=== PATIENT | female | born 1990 | race American Indian/Alaskan Native ===

== ENCOUNTER 2016-07-18 16:23 | Emergency (ER) | payer BC, OTHER ==
[2016-07-18 16:24] VITALS: BMI 20.1
[2016-07-18 16:48] VITALS: BP 137/86; PULSE 83; RESP 16; TEMP 98.8; O2SAT 100
--- NOTE | 2016-07-18 17:18 | ED PDOC ---
HPI: Female Pain Time Seen by Provider: 07/18/16 16:50 Chief Complaint (Nursing): Female Genitourinary History Per: Patient (Vaginal spotting x 2 days. Denies lower abd pain.) Onset/Duration Of Symptoms: Days (2) Current Symptoms Are (Timing): Intermittent Episodes Severity: Mild Pain Scale Rating Of: 0 Associated Symptoms: denies: Nausea, Vomiting Abnormal Vaginal Bleeding: Yes Past Medical History Vital Signs: Last Vital Signs Temp 98.8 F 07/18/16 16:45 Pulse 83 07/18/16 16:45 Resp 16 07/18/16 16:45 BP 137/86 07/18/16 16:45 Pulse Ox 100 07/18/16 16:45 - Medical History PMH: Denies: HIV, Chronic Kidney Disease - Family History Family History: States: Unknown Family Hx - Home Medications Home Medications: Ambulatory Orders Medication Instructions Recorded Vit37/Iron/Folic Acid 1 each PO DAILY 09/19/15 [Prenata Chewable Tablet] Doxylamine/Pyridoxine HCl (B6) 1 each PO DAILY PRN #120 tablet. 10/08/15 [Juan Frias 10-10 mg Tablet] Ondansetron ODT [Zofran ODT] 1 odt PO BID PRN #30 odt 10/08/15 - Allergies Allergies/Adverse Reactions: Allergies Allergy/AdvReac Type Severity Reaction Status Date / Time No Known Allergies Allergy Verified 07/18/16 16:45 Review of Systems Constitutional: Negative for: Fever Gastrointestinal: Negative for: Abdominal Pain Genitourinary Female: Positive for: Vaginal Bleeding. Negative for: Dysuria, Frequency Physical Exam - Physical Exam Appears: Positive for: Non-toxic, No Acute Distress Skin: Positive for: Normal Color, Warm, DRY Gastrointestinal/Abdominal: Positive for: Bowel Sounds, Soft. Negative for: Tenderness Pelvic Exam: Positive for: External Exam Normal, No Masses, Blood (scant old blood in vault). Negative for: Tender Adnexa - Laboratory Results Result Diagrams: 07/18/16 17:44 - ECG O2 Sat by Pulse Oximetry: 100 Medical Decision Making Medical Decision Making: Discussed with Dr. Bauman. Recommends Cytotec intravagianlly. Pt sates she would prefer to wait and see if she miscarries on her own. Disposition - Clinical Impression Clinical Impression: Threatened - Patient ED Disposition Is Patient to be Admitted: No - Disposition Referrals: Erin Fabian MD [Staff Provider] - Disposition: Routine/Home Disposition Time: 20:16 Condition: FAIR Instructions: Threatened Miscarriage (ED)
--- NOTE | 2016-07-18 18:24 | US ---
HISTORY: r/o ectopic COMPARISON: None available. TECHNIQUE: Transvaginal ultrasound examination of the pelvis. FINDINGS: UTERUS: Measures 7.5 x 4.2 x 6.4 cm. Normal in size and appearance. No fibroid or other mass lesion seen. ENDOMETRIUM: There is a cystic structures seen in the endometrium measures 7.8 x 3.7 x 10.3 millimeter may represent and barely gestational sac. No evidence of yolk sac or pole . CERVIX: No cervical abnormality identified. RIGHT OVARY: Measures 1.9 x 0.9 x 1.8 cm. No solid mass. Normal flow. LEFT OVARY: Measures 2.4 x 1.2 x 1.7 cm. No solid mass. Normal flow. FREE FLUID: No significant free fluid noted. OTHER FINDINGS: None. IMPRESSION: Small cystic structures seen in the endometrium may represent an early gestational sac. No evidence of pole or yolk sac. Correlation with the beta HCG level and if indicated close follow-up reassessment is recommended.
[2016-07-18 18:53] LABS: BASO % 0.4 % (0.0-2.0); EOS # 0.1 K/uL (0.0-0.7); EOS % 0.7 % (0.0-4.0); HEMATOCRIT 37.6 % (34.0-47.0); LYMPH # 3.7 K/uL (1.0-4.3); LYMPH % 46.7 % (20.0-40.0); MEAN CELL VOLUME 91.8 fl (81.0-99.0); MEAN CORPUSCULAR HEMOGLOBIN 29.9 pg (27.0-31.0); MEAN CORPUSCULAR HGB CONC 32.5 g/dL (33.0-37.0); MEAN PLATELET VOLUME 8.3 fl (7.2-11.7); MONO # 0.7 K/uL (0.0-0.8); MONO % 9.1 % (0.0-10.0); NEUT # 3.4 K/uL (1.8-7.0); NEUT % 43.1 % (50.0-75.0); NRBC % 0.1 % (0.0-0.0); RED CELL DISTRIBUTION WIDTH 11.7 % (11.5-14.5); WHITE BLOOD COUNT 7.8 K/uL (4.8-10.8)
== END 2016-07-18 20:30 | disposition home or self-care (01) ==
LOC: H.ER 16:23
DX: O20.0 Threatened abortion (principal)

== ENCOUNTER 2016-11-26 15:43 | Emergency (ER) | payer OTHER ==
[2016-11-26 15:43] VITALS: BMI 20.1
--- NOTE | 2016-11-26 16:49 | ED PDOC ---
HPI: Female Pain Time Seen by Provider: 11/26/16 16:13 Chief Complaint (Nursing): Female Genitourinary Chief Complaint (Provider): vaginal d/c History Per: Patient History/Exam Limitations: no limitations Additional Complaint(s): 26yo F in ED for eval of vaginal d/c noted 4d ago-white milky, with itching after unprotected intercourse with a new partner. denies hcx of STI. denies lesions around vulva, denies suprapubic pain denies back pain denies fever or chills nausea or vomiting. denies vaginal bleeding. states she tried store brand vaginal antifungal and Monitostat antifungal both not effective. Past Medical History Reviewed: Historical Data, Nursing Documentation, Vital Signs Vital Signs: Last Vital Signs Temp 98.4 F 11/26/16 15:50 Pulse 84 11/26/16 15:50 Resp 16 11/26/16 15:50 BP 126/67 11/26/16 15:50 Pulse Ox 99 11/26/16 15:50 - Medical History PMH: Denies: HIV, Chronic Kidney Disease - Family History Family History: States: Unknown Family Hx - Home Medications Home Medications: Ambulatory Orders Medication Instructions Recorded Vit37/Iron/Folic Acid 1 each PO DAILY 09/19/15 [Prenata Chewable Tablet] Doxylamine/Pyridoxine HCl (B6) 1 each PO DAILY PRN #120 tablet. 10/08/15 [Juan Frias 10-10 mg Tablet] Ondansetron ODT [Zofran ODT] 1 odt PO BID PRN #30 odt 10/08/15 Fluconazole [Diflucan] 150 mg PO ONCE #1 tab 11/26/16 - Allergies Allergies/Adverse Reactions: Allergies Allergy/AdvReac Type Severity Reaction Status Date / Time No Known Allergies Allergy Verified 11/26/16 15:49 Review of Systems ROS Statement: Except As Marked, All Systems Reviewed And Found Negative Gastrointestinal: Negative for: Abdominal Pain Genitourinary Female: Positive for: Vaginal Discharge. Negative for: Dysuria, Frequency, Incontinence, Vaginal Bleeding, Pelvic Pain Physical Exam - Reviewed Nursing Documentation Reviewed: Yes Vital Signs Reviewed: Yes - Physical Exam Appears: Positive for: Well, Non-toxic, No Acute Distress Head Exam: Positive for: ATRAUMATIC, NORMAL INSPECTION, NORMOCEPHALIC Skin: Positive for: Normal Color, Warm, DRY Cardiovascular/Chest: Positive for: Regular Rate, Rhythm Respiratory: Positive for: CNT, Normal Breath Sounds Gastrointestinal/Abdominal: Positive for: Normal Exam, Bowel Sounds, Soft. Negative for: Tenderness Pelvic Exam: Positive for: External Exam Normal, Bimanual Exam Normal, No Cerv. Motion Tender, No Masses, Discharge (white curd like d/c adhering to the vaignal wall ). Negative for: Active Bleeding, Blood, Cervicitis, Lesions, Mass , Tender W/Cervical Motion, Tender Adnexa, Tender Uterus, Ulcers Neurologic/Psych: Positive for: Alert, Oriented - ECG O2 Sat by Pulse Oximetry: 99 - Progress ED Course And Treament: Orders Category Date Time Status ED Urine (POC) Stat ED Care 11/26/16 16:05 Ordered UDip [ED Urine dipstick (POC)] Stat ED Care 11/26/16 16:05 Ordered CHLAMYDIA/GC RNA,TMA Stat Lab 11/26/16 16:45 Uncollected Fluconazole [Diflucan] Med 11/26/16 16:45 Once 150 mg PO ONCE ONE GENITAL CULTURE Stat Micro 11/26/16 16:45 Uncollected Medical Decision Making Medical Decision Making: pt given option to have prophylactic tx for GC, but decline at this time. advised strongly to wait for results of testing to have intercourse. pt understands and agrees. pt given difuclan in ED and 1 tab for home to take in 3d. pt most likely with ricky infection. Disposition - Clinical Impression Clinical Impression: Vagina, candidiasis, STD (sexually transmitted disease) - Patient ED Disposition Is Patient to be Admitted: No Counseled Patient/Family Regarding: Studies Performed, Diagnosis, Need For Followup, Rx Given - Disposition Referrals: [facility] [Outside] [facility] [Outside] Disposition: Routine/Home Disposition Time: 16:54 Condition: STABLE Additional Instructions: please call the Emergency Department [phone] in 5-6 days for your results. please take your Rx in 3 days. Prescriptions: Fluconazole [Diflucan] 150 mg PO ONCE #1 tab Instructions: Vulvovaginal Candidiasis (ED)
[2016-11-26] MEDS: Fluconazole 150 MG TAB PO ONE (17:25)
[2016-11-26 17:41] VITALS: BP 127/78; PULSE 78; RESP 19; TEMP 97; O2SAT 98
== END 2016-11-26 17:41 | disposition home or self-care (01) ==
LOC: H.ER 15:43
DX: B37.3 Candidiasis of vulva and vagina (principal); A54.9 Gonococcal infection, unspecified

== ENCOUNTER 2016-11-29 17:32 | Emergency (ER) | payer OTHER ==
[2016-11-29 17:32] VITALS: BMI 20.1
[2016-11-29 17:51] VITALS: BP 126/89; PULSE 77; RESP 18; TEMP 99; O2SAT 100
[2016-11-29] MEDS ORDERED: cefTRIAXone (Rocephin) 250 mg Inj IM ONE (18:12)
--- NOTE | 2016-11-29 18:42 | ED PDOC ---
HPI: Female Pain Time Seen by Provider: 11/29/16 17:38 Chief Complaint (Nursing): Female Genitourinary Chief Complaint (Provider): Abnormal labs History Per: Patient History/Exam Limitations: no limitations Additional Complaint(s): Patient is a 26 y/o female with no significant past medical history presenting to the emergency department after she recieved a callback stating her Gonorrhea exam was +. Pt diagnosed with yeast infection and started on Diflucan while in ED. Notes that symptoms are still persisting. Denies any acute complaints at this time. PCP: none provided. Past Medical History Reviewed: Historical Data, Nursing Documentation, Vital Signs Vital Signs: Last Vital Signs Temp 99 F 11/29/16 17:49 Pulse 77 11/29/16 17:49 Resp 18 11/29/16 17:49 BP 126/89 11/29/16 17:49 Pulse Ox 100 11/29/16 17:49 - Medical History PMH: No Chronic Diseases Denies: HIV, Chronic Kidney Disease - Family History Family History: States: Unknown Family Hx - Home Medications Home Medications: Ambulatory Orders Medication Instructions Recorded Vit37/Iron/Folic Acid 1 each PO DAILY 09/19/15 [Prenata Chewable Tablet] Doxylamine/Pyridoxine HCl (B6) 1 each PO DAILY PRN #120 tablet. 10/08/15 [Juan Frias 10-10 mg Tablet] Ondansetron ODT [Zofran ODT] 1 odt PO BID PRN #30 odt 10/08/15 Fluconazole [Diflucan] 150 mg PO ONCE #1 tab 11/26/16 - Allergies Allergies/Adverse Reactions: Allergies Allergy/AdvReac Type Severity Reaction Status Date / Time No Known Allergies Allergy Verified 11/26/16 15:49 Review of Systems ROS Statement: Except As Marked, All Systems Reviewed And Found Negative Genitourinary Female: Positive for: Other (vaginal irritation) Physical Exam - Reviewed Nursing Documentation Reviewed: Yes Vital Signs Reviewed: Yes - Physical Exam Appears: Positive for: Well, Non-toxic, No Acute Distress Head Exam: Positive for: ATRAUMATIC, NORMAL INSPECTION, NORMOCEPHALIC Skin: Positive for: Normal Color, Warm, Dry Eye Exam: Positive for: Normal appearance Neck: Positive for: Normal Cardiovascular/Chest: Positive for: Regular Rate, Rhythm Respiratory: Negative for: Accessory Muscle Use, Respiratory Distress Pelvic Exam: Positive for: Other (deferred) Extremity: Positive for: Normal ROM Neurologic/Psych: Positive for: Alert, Oriented (x3) - ECG O2 Sat by Pulse Oximetry: 100 (RA) Pulse Ox Interpretation: Normal Medical Decision Making Medical Decision Making: Time: 18:15 Initial plan: Zithromycin 1 gram PO Rocephin 250 mg IM safe sex practices discussed at length Scribe Attestation: Documented by Tiffanie Ontiveros, acting as a scribe for ANNALISA Aguilar. Provider Scribe Attestation: All medical record entries made by the Scribe were at my direction and personally dictated by me. I have reviewed the chart and agree that the record accurately reflects my personal performance of the history, physical exam, medical decision making, and the department course for this patient. I have also personally directed, reviewed, and agree with the discharge instructions and disposition. Disposition - Clinical Impression Clinical Impression: Gonorrhea - Patient ED Disposition Is Patient to be Admitted: No - Disposition Disposition: Routine/Home Disposition Time: 18:59 Condition: GOOD Instructions: Gonorrhea (ED) Forms: dVisit (Senegalese) - POA Present On Arrival: None
== END 2016-11-29 19:31 | disposition home or self-care (01) ==
LOC: H.ER 17:32
DX: A54.9 Gonococcal infection, unspecified (principal)
CPT/HCPCS: 96372; 99282; J0696

== ENCOUNTER 2017-03-21 12:10 | Emergency (ER) | payer OTHER ==
[2017-03-21 12:10] VITALS: BMI 20.1
[2017-03-21 12:25] VITALS: BP 128/84; PULSE 92; RESP 16; TEMP 98.4; O2SAT 100
[2017-03-21] MEDS ORDERED: Sodium Chloride 0.9% 1,000 ML IV ONE (13:00)
--- NOTE | 2017-03-21 13:03 | ED PDOC ---
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 Pt reports she was in her state of general good health last night, but when she woke up she felt nauseous. She had approx 10 episodes of NBNB emesis today accompanied by 5 episodes of watery diarrhea. She denies any alleviating or exacerbating factors. 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 No other active complaints. Reports appetite is slowly returning. Has been tolerating minimal PO fluid intake. Denies any recent ETOH/drug abuse. LMP last week. Denies fever/chills, headaches, changes in vision, CP/SOB/palpitations, Urinary symptoms, abdominal pain, numbness/tingling. (Cr Garrido) Past Medical History - Medical History PMH: Denies: HIV, Chronic Kidney Disease - Family History Family History: States: Unknown Family Hx <Cr Garrido - Last Filed: 03/21/17 14:23> <Nichole Gallardo - Last Filed: 03/21/17 14:58> Vital Signs: Last Vital Signs Temp 98.4 F 03/21/17 12:22 Pulse 92 H 03/21/17 12:22 Resp 16 03/21/17 12:22 BP 128/84 03/21/17 12:22 Pulse Ox 100 03/21/17 14:28 - Home Medications Home Medications: Ambulatory Orders Medication Instructions Recorded Vit37/Iron/Folic Acid 1 each PO DAILY 09/19/15 [Prenata Chewable Tablet] Doxylamine/Pyridoxine HCl (B6) 1 each PO DAILY PRN #120 tablet. 10/08/15 [Juan Frias 10-10 mg Tablet] Ondansetron ODT [Zofran ODT] 1 odt PO BID PRN #30 odt 10/08/15 Fluconazole [Diflucan] 150 mg PO ONCE #1 tab 11/26/16 Ondansetron ODT [Zofran ODT] 4 mg PO PRN PRN #10 odt 03/21/17 - Allergies Allergies/Adverse Reactions: Allergies Allergy/AdvReac Type Severity Reaction Status Date / Time No Known Allergies Allergy Verified 03/21/17 12:22 Review of Systems ROS Statement: Except As Marked, All Systems Reviewed And Found Negative <Cr Garrido - Last Filed: 03/21/17 14:23> Physical Exam - Reviewed Nursing Documentation Reviewed: Yes Vital Signs Reviewed: Yes - Physical Exam Appears: Positive for: Non-toxic, No Acute Distress Head Exam: Positive for: ATRAUMATIC Skin: Positive for: Warm, Dry. Negative for: Diaphoresis, Pallor, Jaundice Eye Exam: Positive for: EOMI, PERRL. Negative for: Conjunctival injection, Scleral icterus ENT: Positive for: Normal ENT Inspection Neck: Positive for: Painless ROM, Supple Cardiovascular/Chest: Positive for: Regular Rate, Rhythm. Negative for: JVD, Bradycardia, Tachycardia Respiratory: Positive for: Normal Breath Sounds. Negative for: Decreased Breath Sounds, Accessory Muscle Use, Respiratory Distress Pulses-Radial (L): 2+ Pulses-Radial (R): 2+ Gastrointestinal/Abdominal: Positive for: Bowel Sounds (hyperactive ), Soft. Negative for: Tenderness, Distended, Guarding, Rebound Back: Negative for: L CVA Tenderness, R CVA Tenderness Extremity: Positive for: Capillary Refill (<2s). Negative for: Calf Tenderness Lymphatic: Negative for: Adenopathy Neurologic/Psych: Positive for: Alert, silver holloware assembler II-XII, Oriented <Cr Garrido - Last Filed: 03/21/17 14:23> - Laboratory Results Result Diagrams: 03/21/17 13:50 03/21/17 13:50 - ECG O2 Sat by Pulse Oximetry: 100 <Cr Garrido - Last Filed: 03/21/17 14:23> - Laboratory Results Result Diagrams: 03/21/17 13:50 03/21/17 13:50 <Nichole Gallardo - Last Filed: 03/21/17 14:58> - Progress ED Course And Treament: suspected gastroenteritis, rule out dehydration/infection CBC CMP 1 L NS Zofran 4mg IVP re-evaluated pt still reports mild nausea, but no episodes of emesis or diarrhea during ED stay. Labs unremarkable. (Cr Garrido) Disposition - Patient ED Disposition Is Patient to be Admitted: No - Disposition Disposition: Routine/Home Disposition Time: 14:24 <Cr Garrido - Last Filed: 03/21/17 14:23> <Nichole Gallardo - Last Filed: 03/21/17 14:58> - Clinical Impression Clinical Impression: Gastroenteritis, Gastroenteritis - Disposition Condition: GOOD Additional Instructions: drink plenty of fluids continue with soft/liquid diet get plenty of rest take your nausea medication as needed follow up with your primary medical doctor in two to three days Prescriptions: Ondansetron ODT [Zofran ODT] 4 mg PO PRN PRN #10 odt PRN Reason: Nausea/Vomiting Forms: [facility] ([place]), [facility] School/Work Excuse
[2017-03-21 13:53] LABS: HEMOGLOBIN 13.2 g/dL (12.0-16.0); MEAN CELL VOLUME 89.9 fl (81.0-99.0); MEAN CORPUSCULAR HEMOGLOBIN 29.9 pg (27.0-31.0); MEAN CORPUSCULAR HGB CONC 33.2 g/dL (33.0-37.0); RBC 4.44 Mil/uL (3.80-5.20); RED CELL DISTRIBUTION WIDTH 12.2 % (11.5-14.5)
[2017-03-21 14:09] LABS: BLOOD UREA NITROGEN 12 mg/dl (7-17); GFR AFRICAN-AMERICAN > 60; GFR NON-AFRICAN AMERICAN > 60
== END 2017-03-21 15:29 | disposition home or self-care (01) ==
LOC: H.ER 12:10
DX: K52.9 Noninfective gastroenteritis and colitis, unspecified (principal)
CPT/HCPCS: 80048; 81025; 85027; 96374; 99283; J2405; J7040